=== PATIENT | male | born 2000 | race African-American/Black ===

== ENCOUNTER 2022-07-03 10:59 | Emergency (ER) | payer OTHER ==
[2022-07-03 11:56] VITALS: BP 116/78; PULSE 106; RESP 18; TEMP 98.6
[2022-07-03] MEDS ORDERED: DEXAMETHASONE SOD PHOSPHATE 10 MG/1 ML VIAL PO ONE (12:47)
[2022-07-03] MEDS ORDERED: DEXAMETHASONE SOD PHOSPHATE 10 MG/1 ML VIAL ONE (12:49)
== END 2022-07-03 12:51 | disposition home or self-care (01) ==
LOC: JERFT 10:59
DX: J06.9 Acute upper respiratory infection, unspecified (principal); B97.4 Respiratory syncytial virus as the cause of diseases classified elsewhere
CPT/HCPCS: 0241U-QW; 99283-25; J1100